=== PATIENT | female | born 1965 | race Caucasian/White ===

== ENCOUNTER 2017-03-01 23:01 | Inpatient (IN) | payer OTHER ==
[~2017-03-01] VITALS: Ht 170.2 cm; Wt 49.9 kg
--- NOTE | 2017-03-01 23:30 | NUR ---
Pre- Assessment Patient was seen in intake office for pre-admission assessment. Patient was accompanied by her three friends whom helped with admission process. Patient is notiably intoxicated, answering questions with slurred speech, but stable to continue with admission process. Patients friends verbalized of patient taking up to 10 tabs of Ambien prior to admission. CN made aware and was present in intake office to assess medication and patient. Vital signs rendered and noted as 112/70, 81, 98.0, 18, 96%, 0/10. Patient verbalizes no known allergies. Home medications brought in with patient and Policies on medication disposal explained and understood by patient. Will continue with admission process to unit.
[2017-03-02] VITALS: BP 112/70
[2017-03-02] MEDS ORDERED: ZOLP10TA6 PO (00:23)
[2017-03-02] MEDS ORDERED: TRAZ-144 PO (00:23)
[2017-03-02] MEDS ORDERED: PROG200C15 PO (00:23)
[2017-03-02] MEDS ORDERED: DULO60CA45 PO (00:23)
--- NOTE | 2017-03-02 00:30 | NUR ---
Admission Patient is a 51 year old female from [facility], admitted to [facility] to receive treatment for her Substance Dependence related to her use of Ambien. Patient is ambulatory with one person assistance needed. Patient was escorted on to unit by intake department where body check was rendered. Skin check rendered with skin noted intact. Patient verbalizes allergies no known allergies, wishes to be full code, following a regular diet. Patients height noted to be 57 and weight noted to be 110lbs. Breathing is even and non labored with no signs of SOB. BUE and BLE noted to be WNL with no edema noted. Lung sounds clear with no cough noted. Bowel sounds are active in all 4 quadrants with LBM noted 03/01/17. Patient denies past medial history, seizures, suicidal or homicidal ideations. Home Medications reconciled. She describes her usage as: 1. Ambien, using for the past 20 years, 4 tabs of 10mgs PO QHS, with the last dose prior to admission taking 10 tabs of 10mgs 2. Trazodone, for the past 2 weeks, 2 tabs of 50mgs, with the last dose noted 02/27/17 3. Klonopin, for the past year, taking 1mg PO with the last dose noted 02/27/17 4. Xanax, "it was so long ago I dont remember" patient states "Unable to remember because its not my thing." 5. ETOH, patient explains "I only drink socially, like at dinner or gatherings" last drink noted to be prior to admission drinking 1-2 shots. 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 Admission CIWA noted to be 1. All information relayed to MD with PRN medications available, labs to be drawn. Patient placed on 1:1 for safety. All needs attended to promptly. Will continue plan of care as ordered.
[2017-03-02] MEDS ORDERED: MIRALAX 17 GM POWD.PACK PO PRN (03:30)
[2017-03-02] MEDS ORDERED: IBUPROFEN 400 MG TABLET PO PRN (03:30)
[2017-03-02] MEDS ORDERED: MAGNESIUM HYDROXIDE 30 ML LIQUID UDC PO PRN (03:30)
[2017-03-02] MEDS ORDERED: LOPERAMIDE HCL 2 MG CAPSULE PO PRN ×2 (03:30)
[2017-03-02] MEDS ORDERED: ONDANSETRON 4 MG/2 ML VIAL IM PRN (03:30)
[2017-03-02] MEDS ORDERED: ONDANSETRON ODT 4 MG TAB.RAPDIS SL PRN (03:30)
[2017-03-02] MEDS ORDERED: LORAZEPAM 2 MG/1 ML VIAL IM PRN (03:30)
[2017-03-02] MEDS ORDERED: HYDROXYZINE PAMOATE 25 MG CAPSULE PO PRN (03:30)
[2017-03-02] MEDS ORDERED: LORAZEPAM 1 MG TABLET PO PRN ×2 (03:30)
[2017-03-02] MEDS ORDERED: ACETAMINOPHEN 325 MG TABLET PO PRN (03:30)
[2017-03-02] MEDS ORDERED: MAG HYDROX/AL HYDROX/SIMETH 30 ML LIQUID UDC PO PRN (03:30)
[2017-03-02] MEDS ORDERED: diphenhydrAMINE 50 MG CAPSULE PO PRN (03:30)
[2017-03-02 04:05] VITALS: BP 114/78
[2017-03-02 04:17] LABS: *AMPHETAMINE, URINE NEGATIVE (NEGATIVE); *BARBITURATE, URINE NEGATIVE (NEGATIVE); *CANNABINOID, URINE NEGATIVE (NEGATIVE); *COCCAINE, URINE NEGATIVE (NEGATIVE); *OPIATE, URINE NEGATIVE (NEGATIVE); *PHENCYCLIDINE SCREEN,URINE NEGATIVE (NEGATIVE)
[2017-03-02 04:30] LABS: BASOPHILS % (AUTO) 0.9 % (0.0-2.0); EOSINOPHILS # (AUTO) 0.1 K/uL (0.0-0.7); EOSINOPHILS % (AUTO) 2.4 % (0.0-7.0); HEMATOCRIT 33.8 % (37-47); HEMOGLOBIN 11.2 G/DL (12.0-16.0); LYMPHOCYTES # (AUTO) 1.6 K/UL (0.8-4.8); LYMPHOCYTES % (AUTO) 31.6 % (20.5-51.5); MEAN CORPUSCULAR HEMOGLOBIN 29.3 UUG (27.0-31.0); MEAN CORPUSCULAR HGB CONC 33 g/dL (32.0-37.0); MEAN CORPUSCULAR VOLUME 88.5 FL (81.0-99.0); MONOCYTES # (AUTO) 0.5 K/UL (0.1-1.30); MONOCYTES % (AUTO) 10.3 % (0.0-11.0); NEUTROPHILS # (AUTO) 2.8 K/UL (1.8-8.9); NEUTROPHILS % (AUTO) 54.8 % (38.5-71.5); PLATELET COUNT (AUTO) 165 K/UL (150-450); RED BLOOD CELL COUNT(AUTO) 3.82 MIL/UL (4.2-5.4)
[2017-03-02 04:51] LABS: THYROID STIMULATING HORMONE 2.787 mIU/mL (0.358-3.740)
[2017-03-02 04:56] LABS: BILIRUBIN,TOTAL 0.3 mg/dL (0.2-1.0); CREATININE 0.7 mg/dL (0.6-1.3); MAGNESIUM 1.9 mg/dL (1.8-2.4); POTASSIUM 3.8 mmol/L (3.5-5.1); TOTAL PROTEIN, SERUM 6.3 g/dL (6.4-8.2)
--- NOTE | 2017-03-02 07:21 | NUR ---
End of Shift Patient is in bed awake, alert and verbally responsive. Breathing even and non labored. No signs of pain or discomfort noted. Patient is a 51 year old female admitted on 03/01/17 for Substance Dependence. No known allergies verbalized, wishes to be full code, following a regular diet, placed on fall precautions, skin noted intact. Patient denies past medical history. No suicidal ideations or history of seizures. No PRN medications administered. Admission CIWA noted to be 1. All needs attended to promptly. Will endorse to continue plan of care as ordered.
--- NOTE | 2017-03-02 07:30 | NUR ---
START OF SHIFT Pt is a 51 yr old female. AA&Ox4. Pt was admitted on 03/01/17 for substance dependence. Pt denies any PMH. Pt is currently in bed resting with respirations even and unlabored. Pt is c/o headache 10/01. Encouraged increase fluid intake. Will f/u with orders. Skin is intact, warm and dry to touch. No tremors seen or felt. Pt denies any n/v. Safety precautions is observed. Call light is within reach. Will continue to monitor.
--- NOTE | 2017-03-02 07:58 | NUR ---
TYLENOL PRN GIVEN Pt c/o headache 10/01. Tylenol 650mg PO PRN was given as ordered. Encouraged increase fluid intake. Will continue to monitor.
[2017-03-02 08:00] VITALS: BP 115/73
[2017-03-02] MEDS: FOLIC ACID 1 MG TABLET PO SCH (08:26)
[2017-03-02] MEDS: MULTIVITAMINS,THERAPEUTIC TABLET PO SCH (08:26)
[2017-03-02] MEDS: THIAMINE HCL 100 MG TABLET PO SCH (08:27)
--- NOTE | 2017-03-02 08:58 | NUR ---
PRN RE-ASSESSMENT Tylenol PRN was effective for pain mgt. Pt denies any pain or discomfort. Encouraged increase fluid intake. Will continue to monitor.
--- NOTE | 2017-03-02 09:00 | NUR ---
MEDICATION REFUSED Pt refused to take 0900 medications as scheduled. Pt states of wanting to leave facility. Pt was educated on medication regimen and plan of care. Pt continues to refuse. Will continue to f/u
[2017-03-02 12:00] VITALS: BP 112/76
[2017-03-02] MEDS ORDERED: TUBERCULIN,PURIF.PROT.DERIV. 5 TU/0.1 ML TEST ID ONE (13:00)
--- NOTE | 2017-03-02 13:00 | NUR ---
TB REFUSED Pt refused to have PPD done. Pt was educated on medication regimen but pt continued to refuse. MD is made aware.
[2017-03-02] MEDS: DULOXETINE 30 MG CAPSULE.DR PO SCH (14:14)
--- NOTE | 2017-03-02 14:37 | NUR ---
AMA Pt left AMA, Pt refused to comply with treatment. Pt was educated about the risks and consequences of leaving AMA. Pt verbalized understanding but was adamant about leaving. Multiple Staff members including doctors, pt advocates and nurses attempted to reason with pt without success. VS WNL, skin is intact. Pt denies any SI/HI. was notified. Pt was given a list of community resources. AMA form was explained and sign. All belongings and valuables were given to pt. pt left facility on 03/02/17 at 1425 Addendum: 03/02/17 at 1520 by YAHAIRA ADHIKARI [employer] was notified by administration, pt decided not to leave the premises. Pt is currently intake with family. Pt wants to return to unit to complete detox and continue with plan of care. Dr. Mayer is aware.
--- NOTE | 2017-03-02 15:45 | NUR ---
NSG NOTES Pt came back up onto the unit at this time in stable condition. Pt came back onto the unit within the 2 hour period. Pt is observed with increase anxiety. Will continue to f/u.
[2017-03-02 16:00] VITALS: BP 128/69
--- NOTE | 2017-03-02 16:11 | NUR ---
ATIVAN PRN GIVEN Pt is observed with increase anxiety and is observed crying. Fine tremors are felt. CIWA score is 5. Ativan 1mg PO PRN was given as ordered. Medication nubia well. Will continue to monitor.
--- NOTE | 2017-03-02 17:11 | NUR ---
PRN RE-ASSESSMENT Ativan PRN was effective. CIWA score is 1. Pt is currently in bed resting with respirations even and unlabored. No acute distress noted. Safety precautions observed. Will continue to monitor.
[2017-03-02] MEDS ORDERED: TRAZODONE 100 MG TABLET PO PRN (18:00)
[2017-03-02 18:03] LABS: *URINE HCG, QUAL NEGATIVE (NEGATIVE)
--- NOTE | 2017-03-02 18:52 | NUR ---
END OF SHIFT Pt is a 51 yr old female. AA&Ox4. Pt was admitted on 03/01/17 for substance dependence and is on PRNs for s/s of w/d. Pt received Tylenol PRN in the morning for headache. Medication nubia well. Pt also received Ativan 1mg PRN for increase anxiety at 1611. Medication was effective. Last CIWA score was 1 at 1700. Encouraged increase fluid intake. Skin is intact, warm and dry to touch. No tremors seen or felt. Pt denies any n/v. Safety precautions is observed. Call light is within reach.
--- NOTE | 2017-03-02 19:10 | NUR ---
Start of Shift Patient is in bed awake, alert and verbally responsive. Breathing even and non labored. No signs of pain or discomfort noted. Patient is a 51 year old female re-admitted on 03/02/17 for Substance Dependence. No known allergies verbalized, wishes to be full code, following a regular diet, placed on fall precautions, skin noted intact. Patient denies past medical history. No suicidal ideations or history of seizures. Per endorsement, patient was given PRN Ativan 1mg, Vistaril, and Tylenol with all PRN medications noted to be effective. Last noted CIWA noted to be 1. All needs attended to promptly. Will endorse to continue plan of care as ordered.
[2017-03-02 20:18] VITALS: BP 134/82
[2017-03-02] MEDS: CLONIDINE HCL 0.1 MG TABLET PO PRN (20:21)
--- NOTE | 2017-03-02 20:25 | NUR ---
PRN Medication administration Patient verbalizing increased anxiety, agitation, inability of falling asleep, and pain due to headache /. PRN Motrin, Clonidine, and trazodone administered with routine medications. Will continue to monitor.
[2017-03-02] MEDS ORDERED: PROGESTERONE PO SCH ×2 (21:00)
--- NOTE | 2017-03-02 21:30 | NUR ---
PRN Medication Reassessment Patient noted in bed sleeping. Breathing even and non labored. No signs of pain or discomfort noted. Patient verbalized increased anxiety, agitation, inability of falling asleep, and pain due to headache. Patient continues to rest with no complications or facial grimacing noted. Patient was given PRN Clonidine, Motrin, and Trazodone with medication noted to be effective. Will continue to monitor.
[2017-03-03 00:23] VITALS: BP 119/76
[2017-03-03 04:24] VITALS: BP 117/68
--- NOTE | 2017-03-03 06:57 | NUR ---
End of Shift Patient is in bed awake, alert and verbally responsive. Breathing even and non labored. No signs of pain or discomfort noted. Patient is a 51 year old female admitted on 03/01/17 for Substance Dependence. No known allergies, full code, following a regular diet, placed on fall precautions, skin noted intact. Patient denies past medical history. No suicidal ideations or history of seizures. Patient was given PRN Clonidine, Benadryl, and Motrin with medications noted to be effective. Last noted CIWA 7. All needs attended to promptly. Will endorse to continue plan of care as ordered.
--- NOTE | 2017-03-03 07:12 | NUR ---
START OF SHIFT Pt is a 51 yr old female. AA&Ox4. Pt was admitted on 03/01/17 for substance dependence. Pt denies any PMH. Received endorsement from automation qtp tester nurse. Pt slept for 9 hrs during the night. last CIWA score was 7 at 0000. Pt is to be discharged today. Pt is observed with anxiety m/b difficultly staying still. Encouraged increase fluid intake. Skin is intact, warm and dry to touch. No tremors seen or felt. Pt denies any n/v. Safety precautions is observed. Call light is within reach. Will continue to monitor.
[2017-03-03 08:00] VITALS: BP 130/76
[2017-03-03] MEDS: DULOXETINE 30 MG CAPSULE.DR PO SCH (08:07)
[2017-03-03 08:08] VITALS: BP 130/72
[2017-03-03] MEDS: FOLIC ACID 1 MG TABLET PO SCH (08:08)
[2017-03-03] MEDS: MULTIVITAMINS,THERAPEUTIC TABLET PO SCH (08:08)
[2017-03-03] MEDS: CLONIDINE HCL 0.1 MG TABLET PO PRN (08:08)
[2017-03-03] MEDS: THIAMINE HCL 100 MG TABLET PO SCH (08:09)
[2017-03-03 09:07] LABS: HEPATITIS B SURFACE AG Negative (Negative)
--- NOTE | 2017-03-03 09:56 | NUR ---
DISCHARGE Pt is a 51 yr old female. AA&Ox4. Pt was admitted on 03/01/17 for substance dependence. Pt is in stable condition. Last CIWA was 2 at 0800. VS WNL. Pt was educated with discharged package. Pt was able to verbalize understanding. Pt was off the unit at 0940 in stable condition with all belonging and valuables. Pt was discharged home.
== END 2017-03-03 09:40 | disposition home or self-care (01) | DRG 897 ==
LOC: SRC 23:01
PROVIDERS: ADMIT Internal Medicine; ATTEND Internal Medicine
PROC: HZ2ZZZZ Detoxification Services for Substance Abuse Treatment (ICD-10-PCS; principal; 2017-03-01)
DX: F10.230 Alcohol dependence with withdrawal, uncomplicated (principal); F33.1 Major depressive disorder, recurrent, moderate; Y90.0 Blood alcohol level of less than 20 mg/100 ml; F13.10 Sedative, hypnotic or anxiolytic abuse, uncomplicated
CPT/HCPCS: 36415; 80307; 83735; 84443; 84703; 85025; 86592; 86705; 86803; 87340; 87806; G0480